=== PATIENT | male | born 1965 | race Hispanic/Latino ===

== ENCOUNTER 2016-04-22 20:40 | Inpatient (IN) | payer BC ==
[2016-04-22] MEDS ORDERED: NACL 0.9% 1000 ML 1,000 ML IV ONE ×2 (20:58→23:35)
[2016-04-22] MEDS ORDERED: SUBLIMAZE IV ONE (20:58)
[2016-04-22] MEDS ORDERED: ARTIFICIAL TEARS OPHTH OINT OU PRN (20:58)
[2016-04-22] MEDS ORDERED: VASELINE LIP THERAPY TP PRN (20:58)
[2016-04-22] MEDS ORDERED: VERSED IV ONE ×2 (20:58→21:30)
[2016-04-22] MEDS ORDERED: NACL 0.9% 500 ML IV SCH (21:00)
[2016-04-22] MEDS ORDERED: fentaNYL DRIP Premix 100 ML IV SCH (21:00)
[2016-04-22] MEDS ORDERED: VERSED ONE (21:00)
[2016-04-22] MEDS ORDERED: VERSED/NS 100MG/100ML 100 ML IV ONE (21:12)
[2016-04-22] MEDS: VERSED/NS 100MG/100ML 100 ML IV SCH (21:15)
[2016-04-22 21:19] LABS: Hematocrit 43.2 % (35.5-45.6); Hemoglobin 13.9 gm/dl (11.8-15.2); Mean Corpuscular HGB Conc 32 % (32-34); Mean Corpuscular Hemoglobin 30 pg (28-32); Mean Corpuscular Volume 92 fl (84-94); Platelet Count 285 K/mm3 (140-440); Red Blood Count 4.68 M/mm3 (3.65-5.03); Red Cell Distribution Width 13.4 % (13.2-15.2); White Blood Count 14.7 K/mm3 (4.5-11.0)
[2016-04-22] MEDS ORDERED: NS IV ONE (21:30)
[2016-04-22 21:33] LABS: INR 1.03 (0.87-1.13)
[2016-04-22 21:34] LABS: Partial Thromboplastin Time 26.4 Sec. (24.2-36.6)
[2016-04-22 21:41] LABS: ISTAT Base Excess -6; ISTAT HCO3 21.9; ISTAT PCO2 52.4 (35-45); ISTAT PH 7.228 (7.35-7.45); ISTAT PO2 148 (80-105); ISTAT SO2 99; ISTAT TCO2 23
[2016-04-22 21:44] LABS: Alanine Aminotransferase 45 units/L (7-56); Albumin 3.8 g/dL (3.9-5); Albumin/Globulin Ratio 1.2 %; Alkaline Phosphatase 94 units/L (35-129); Anion Gap 27 mmol/L; BUN/Creatinine Ratio 11.25; Bilirubin,Total 0.2 mg/dL (0.1-1.2); Blood Urea Nitrogen 18 mg/dL (9-20); Calcium 8.7 mg/dL (8.4-10.2); Carbon Dioxide 18 mmol/L (22-30); Chloride 95.3 mmol/L (98-107); Creatine Kinase 76 units/L (55-170); Glucose 436 mg/dL (75-100); Potassium 5.1 mmol/L (3.6-5.0); Sodium 135 mmol/L (137-145)
--- NOTE | 2016-04-22 21:52 | Emergency Department Report ---
ED General Adult HPI - General Chief complaint: Dyspnea/Respdistress Stated complaint: RESPIRATORY ARREST Time Seen by Provider: 04/22/16 20:58 Source: EMS Mode of arrival: Stretcher Limitations: Physical Limitation - History of Present Illness Initial comments: 51-year-old male presents to the emergency department via EMS in respiratory distress. Per report, the patient was found unresponsive in the bathtub by family. EMS was called and on arrival found the family performing CPR on the patient. Patient was noted to have agonal respirations by EMS, but had strong palpable pulses. Patient was administered 2 mg of Narcan by EMS and was intubated in the field with a 7.0 endotracheal tube. EMS states that the patient began to become more alert just prior to arrival in the emergency department. Further history unable to be obtained from the patient due to his clinical condition. -: Sudden, This evening - Related Data Allergies Allergy/AdvReac Type Severity Reaction Status Date / Time No Known Allergies Allergy Unverified 04/22/16 21:55 ED Review of Systems ROS: Stated complaint: RESPIRATORY ARREST Other details as noted in HPI Comment: Unobtainable due to pts medical conditions ED Past Medical Hx - Past Medical History Additional medical history: Unknown - Surgical History Additional Surgical History: Unknown - Social History Smoking Status: Unknown if ever smoked Substance Use Type: Alcohol ED Physical Exam - General Limitations: Physical Limitation General appearance: alert, in no apparent distress - Head Head exam: Present: atraumatic, normocephalic - Eye Eye exam: Present: normal appearance, PERRL, EOMI - ENT ENT exam: Present: normal exam, normal orophraynx (7.[address] secured at 24 cm at the lip), mucous membranes moist - Neck Neck exam: Present: normal inspection, full ROM. Absent: tenderness - Respiratory Respiratory exam: Present: normal lung sounds bilaterally. Absent: respiratory distress - Cardiovascular Cardiovascular Exam: Present: regular rate, normal rhythm, normal heart sounds - GI/Abdominal GI/Abdominal exam: Present: soft, normal bowel sounds. Absent: distended, tenderness - Extremities Exam Extremities exam: Present: normal inspection, full ROM. Absent: tenderness - Back Exam Back exam: Present: normal inspection, full ROM. Absent: tenderness - Neurological Exam Neurological exam: Present: alert. Absent: motor sensory deficit - Skin Skin exam: Present: warm, dry, intact ED Course Vital Signs 04/22/16 04/22/16 20:50 21:20 Pulse Rate 87 77 Blood Pressure 89/43 104/38 O2 Sat by Pulse 100 100 Oximetry ED Medical Decision Making - Lab Data Result diagrams: 04/22/16 21:00 04/22/16 21:00 - Radiology Data Radiology results: image reviewed interpreted by me: Chest x-ray shows the endotracheal tube in adequate position. No acute cardiopulmonary abnormality is noted. - Medical Decision Making Lab and imaging results reviewed. I spoke with the hospitalist, who will admit. - Differential Diagnosis respiratory arrest, drug overdose, alcohol intoxication Critical care attestation.: If time is entered above; I have spent that time in minutes in the direct care of this critically ill patient, excluding procedure time. ED Disposition Clinical Impression: Acute respiratory failure Qualifiers: Respiratory failure complication: hypercapnia Qualified Code(s): J96.02 - Acute respiratory failure with hypercapnia Disposition: OP ADMITTED IP TO THIS HOSP Is pt being admited?: Yes Condition: Fair Time of Disposition: 22:09
[2016-04-22 23:05] LABS: Basophils % (Manual) 0 % (0.0-1.8); Blastocytes % (Manual) 0 %; Giant Platelets Few; RBC Morphology Normal
[2016-04-22 23:06] LABS: Diff Status Complete
[2016-04-22 23:19] LABS: Urine Drugs of Abuse Note Disclamer
--- NOTE | 2016-04-22 23:22 | Admit Criteria Form ---
Admission Criteria Documentation: RESPIRATORY FAILURE GRG Clinical Indications for Admission to Inpatient Care (Place 'X' for any and all applicable criteria): Hospital admission is needed for appropriate care of the patient because of acute respiratory failure or insufficiency as indicated by ANY ONE of the following(1)(2)(3)(4)(5)(6)(7)(8): [X ]I. Mechanical ventilation needed (acute invasive or noninvasive) [ ]II. Severe ventilation deficit as indicated by ANY ONE of the following (9) [ ]a) Respiratory acidosis (pH less than 7.32 and partial pressure of carbon dioxide greater than 40 mm Hg (5.3 kPa)) [ ]b) Partial pressure of carbon dioxide greater than 44 mm Hg (5.9 kPa ) (new) [ ]c) Airflow measurements less than 25% of predicted (eg, peak expiratory flow rate less than 100 L/minute) [ ]d) Forced vital capacity less than 15 mL/kg of ideal body weight, or 50% decrease in vital capacity from baseline [ ]III. Noncardiac pulmonary edema not resolving with rapid emergency treatment (8) [ ]IV. Severe respiratory distress as indicated by ANY ONE of the following: [ ]a) Severe tachypnea (respiratory rate greater than 30, greater than 45 for 6-month-old, greater than 60 for ) [ ]b) Severe hypoxemia (partial pressure of oxygen less than 50 mm Hg ( 6.7 kPa) on greater than 50% oxygen or partial pressure of oxygen to FIO2 ratio less than 200) [ ]c) Mental status deterioration from respiratory disease [ ]V. Airway obstruction or inadequate protection [A](10)(11) The original [employer] content created by [employer] has been revised. The portions of the content which have been revised are identified through the use of italic text or in bold, and [employer] has neither reviewed nor approved the modified material. All other unmodified content is copyright [employer]. Please see references footnoted in the original [employer] edition 2016 Admission Criteria Met: Yes
[2016-04-22 23:49] LABS: Bilirubin,Urine NEG (Negative); Blood,Urine SM (Negative); Ketones,Urine NEG (Negative); Leukocyte Esterase,Urine NEG (Negative); Mucus,Urine FEW /HPF; Nitrite,Urine NEG (Negative); Sperm,Urine 1+ /HPF (NP); Urobilinogen,Urine < 2.0 mg/dL (<2.0)
[2016-04-23] MEDS ORDERED: ATIVAN IV PRN (01:01)
--- NOTE | 2016-04-23 01:05 | History and Physical Report ---
History of Present Illness Date of examination: 04/22/16 Date of admission: 04/22/16 Chief complaint: Respiratory arrest History of present illness: History is obtained per chart review 51-year-old male presents to the emergency department via EMS in respiratory distress. Per report, the patient was found unresponsive in the bathtub by family. EMS was called and on arrival found the family performing CPR on the patient. Patient was noted to have agonal respirations by EMS, but had strong palpable pulses. Patient was administered 2 mg of Narcan by EMS and was intubated in the field with a 7.0 endotracheal tube. EMS stated that the patient began to become more alert just prior to arrival in the emergency department. Further history unable to be obtained from the patient due to his clinical. Past History Past Medical History: other (couldn't obtained because of altered mental status) Past Surgical History: Other (couldn't obtained because of altered mental status ) Social history: other (couldn't obtained because of altered mental status) Family history: other (couldn't obtained because of altered mental status) Medications and Allergies Allergies Allergy/AdvReac Type Severity Reaction Status Date / Time No Known Allergies Allergy Unverified 04/22/16 21:55 Active Meds: Active Medications Heparin Sodium (Porcine) (Heparin) 5,000 unit SUB-Q Q8HR KATHYA Hydrophilic Ointment (Vaseline Lip Therapy) 1 applic TP Q2HR PRN PRN Reason: Dry Lips Fentanyl Citrate (Fentanyl Drip Premix) 100 mls @ 4.3 mls/hr IV TITR KATHYA; 1 MCG /KG/HR PRN Reason: Protocol Last Admin: 04/22/16 21:15 Dose: 4.3 mls/hr Midazolam HCl (Versed/Ns 100mg/100ml) 100 mls @ 2 mls/hr IV TITR KATHYA; 2 MG/HR PRN Reason: Protocol Last Admin: 04/22/16 21:15 Dose: 2 mls/hr Piperacillin Sod/Tazobactam Sod (Zosyn/Ns 3.375gm/50ml) 50 mls @ 100 mls/hr IV Q6HR KATHYA Lorazepam (Ativan) 2 mg IV Q1HR PRN PRN Reason: SHIELA-Philip 8- Multi-Ingred Cream/Lotion/Oil/Oint (Artificial Tears Ophth Oint) 1 applic OU Q4HR PRN PRN Reason: Dry Eye(s) Sodium Chloride (Nacl 0.9% 500 Ml) 1 ml IV DIRECT KATHYA Review of Systems ROS unobtainable: due to mental status (Patient is sedated, intubated, mechanically ventilated) Exam - Physical Exam Narrative exam: Patient is intubated and mechanically ventilated. Vital signs as documented. Head exam is unremarkable. No scleral icterus . Neck is without jugular venous distension, thyromegaly, or carotid bruits. Lungs are clear to auscultation. Cardiac exam reveals regular rate and Rhythm. First and second heart sounds normal. No murmurs, rubs or gallops. Abdominal exam reveals normal bowel sounds, no masses, no organomegaly and no aortic enlargement. Extremities are nonedematous and both femoral and pedal pulses are normal. ADDICTION TREATMENT COUNSELOR: Sedated. - Constitutional Vitals: Temp Pulse Resp BP Pulse Ox 67 22 95/58 100 04/23/16 00:16 04/23/16 00:00 04/23/16 00:16 04/23/16 00:16 Results - Labs CBC & Chem 7: 04/22/16 21:00 04/22/16 21:00 Labs: Laboratory Last Values WBC 14.7 K/mm3 (4.5-11.0) H 04/22/16 21:00 RBC 4.68 M/mm3 (3.65-5.03) 04/22/16 21:00 Hgb 13.9 gm/dl (11.8-15.2) 04/22/16 21:00 Hct 43.2 % (35.5-45.6) 04/22/16 21:00 MCV 92 fl (84-94) 04/22/16 21:00 MCH 30 pg (28-32) 04/22/16 21:00 MCHC 32 % (32-34) 04/22/16 21:00 RDW 13.4 % (13.2-15.2) 04/22/16 21:00 Plt Count 285 K/mm3 (140-440) 04/22/16 21:00 Lymph # Senior Games Technician 04/22/16 21:00 Add Manual Diff Complete 04/22/16 21:00 Total Counted 100 04/22/16 21:00 Seg Neuts % (Manual) 43.0 % (40.0-70.0) 04/22/16 21:00 Band Neutrophils % 0 % 04/22/16 21:00 Lymphocytes % (Manual) 47.0 % (13.4-35.0) H 04/22/16 21:00 Reactive Lymphs % (Man) 0 % 04/22/16 21:00 Monocytes % (Manual) 6.0 % (0.0-7.3) 04/22/16 21:00 Eosinophils % (Manual) 3.0 % (0.0-4.3) 04/22/16 21:00 Basophils % (Manual) 0 % (0.0-1.8) 04/22/16 21:00 Metamyelocytes % 1.0 % 04/22/16 21:00 Myelocytes % 0 % 04/22/16 21:00 Promyelocytes % 0 % 04/22/16 21:00 Blast Cells % 0 % 04/22/16 21:00 Nucleated RBC % Not Reportable 04/22/16 21:00 Seg Neutrophils # Man 6.3 K/mm3 (1.8-7.7) 04/22/16 21:00 Band Neutrophils # 0.0 K/mm3 04/22/16 21:00 Lymphocytes # (Manual) 6.9 K/mm3 (1.2-5.4) H 04/22/16 21:00 Abs React Lymphs (Man) 0.0 K/mm3 04/22/16 21:00 Monocytes # (Manual) 0.9 K/mm3 (0.0-0.8) H 04/22/16 21:00 Eosinophils # (Manual) 0.4 K/mm3 (0.0-0.4) 04/22/16 21:00 Basophils # (Manual) 0.0 K/mm3 (0.0-0.1) 04/22/16 21:00 Metamyelocytes # 0.1 K/mm3 04/22/16 21:00 Myelocytes # 0.0 K/mm3 04/22/16 21:00 Promyelocytes # 0.0 K/mm3 04/22/16 21:00 Blast Cells # 0.0 K/mm3 04/22/16 21:00 WBC Morphology Not Reportable 04/22/16 21:00 Hypersegmented Neuts Not Reportable 04/22/16 21:00 Hyposegmented Neuts Not Reportable 04/22/16 21:00 Hypogranular Neuts Not Reportable 04/22/16 21:00 Smudge Cells Not Reportable 04/22/16 21:00 Toxic Granulation Not Reportable 04/22/16 21:00 Toxic Vacuolation Not Reportable 04/22/16 21:00 Dohle Bodies Not Reportable 04/22/16 21:00 Pelger-Huet Anomaly Not Reportable 04/22/16 21:00 Dhara Rods Not Reportable 04/22/16 21:00 Platelet Estimate Appears normal 04/22/16 21:00 Clumped Platelets Not Reportable 04/22/16 21:00 Plt Clumps, EDTA Not Reportable 04/22/16 21:00 Large Platelets Not Reportable 04/22/16 21:00 Giant Platelets Few 04/22/16 21:00 Platelet Satelliting Not Reportable 04/22/16 21:00 Plt Morphology Comment Not Reportable 04/22/16 21:00 RBC Morphology Normal 04/22/16 21:00 Dimorphic RBCs Not Reportable 04/22/16 21:00 Polychromasia Not Reportable 04/22/16 21:00 Hypochromasia Not Reportable 04/22/16 21:00 Poikilocytosis Not Reportable 04/22/16 21:00 Anisocytosis Not Reportable 04/22/16 21:00 Microcytosis Not Reportable 04/22/16 21:00 Macrocytosis Not Reportable 04/22/16 21:00 Spherocytes Not Reportable 04/22/16 21:00 Pappenheimer Bodies Not Reportable 04/22/16 21:00 Sickle Cells Not Reportable 04/22/16 21:00 Target Cells Not Reportable 04/22/16 21:00 Tear Drop Cells Not Reportable 04/22/16 21:00 Ovalocytes Not Reportable 04/22/16 21:00 Helmet Cells Not Reportable 04/22/16 21:00 [place] Bodies Not Reportable 04/22/16 21:00 [place] Rings Not Reportable 04/22/16 21:00 Kim Cells Not Reportable 04/22/16 21:00 Bite Cells Not Reportable 04/22/16 21:00 Crenated Cell Not Reportable 04/22/16 21:00 Elliptocytes Not Reportable 04/22/16 21:00 Acanthocytes (Spur) Not Reportable 04/22/16 21:00 Rouleaux Not Reportable 04/22/16 21:00 Hemoglobin C Crystals Not Reportable 04/22/16 21:00 Schistocytes Not Reportable 04/22/16 21:00 Malaria parasites Not Reportable 04/22/16 21:00 Alex Bodies Not Reportable 04/22/16 21:00 Hem Pathologist Commnt No 04/22/16 21:00 PT 13.4 Sec. (12.2-14.9) 04/22/16 21:05 INR 1.03 (0.87-1.13) 04/22/16 21:05 APTT 26.4 Sec. (24.2-36.6) 04/22/16 21:05 POC ABG pH 7.228 (7.35-7.45) L 04/22/16 21:28 POC ABG pCO2 52.4 (35-45) H 04/22/16 21:28 POC ABG pO2 148 (80-105) H 04/22/16 21:28 POC ABG HCO3 21.9 04/22/16 21:28 POC ABG Total CO2 23 04/22/16 21:28 POC ABG O2 Sat 99 04/22/16 21:28 POC ABG Base Excess -6 04/22/16 21:28 FiO2 50 % 04/22/16 21:28 Sodium 135 mmol/L (137-145) L 04/22/16 21:00 Potassium 5.1 mmol/L (3.6-5.0) H 04/22/16 21:00 Chloride 95.3 mmol/L (98-107) L 04/22/16 21:00 Carbon Dioxide 18 mmol/L (22-30) L 04/22/16 21:00 Anion Gap 27 mmol/L 04/22/16 21:00 BUN 18 mg/dL (9-20) 04/22/16 21:00 Creatinine 1.6 mg/dL (0.8-1.5) H 04/22/16 21:00 Estimated GFR 46 ml/min 04/22/16 21:00 BUN/Creatinine Ratio 11.25 % 04/22/16 21:00 Glucose 436 mg/dL (75-100) H 04/22/16 21:00 Lactic Acid 5.8 mmol/L (0.7-2.0) H* 04/22/16 21:00 Calcium 8.7 mg/dL (8.4-10.2) 04/22/16 21:00 Total Bilirubin 0.2 mg/dL (0.1-1.2) 04/22/16 21:00 AST 52 units/L (5-40) H 04/22/16 21:00 ALT 45 units/L (7-56) 04/22/16 21:00 Alkaline Phosphatase 94 units/L (35-129) 04/22/16 21:00 Ammonia 68.0 umol/L (25-60) H 04/22/16 21:00 Total Creatine Kinase 76 units/L (55-170) 04/22/16 21:00 Troponin T < 0.010 ng/mL (0.00-0.029) 04/22/16 21:00 Total Protein 7.0 g/dL (6.3-8.2) 04/22/16 21:00 Albumin 3.8 g/dL (3.9-5) L 04/22/16 21:00 Albumin/Globulin Ratio 1.2 % 04/22/16 21:00 Urine Color Yellow (Yellow) 04/22/16 22:57 Urine Turbidity Clear (Clear) 04/22/16 22:57 Urine pH 5.0 (5.0-7.0) 04/22/16 22:57 Ur Specific [place] 1.015 (1.003-1.030) 04/22/16 22:57 Urine Protein 100 mg/dl mg/dL (Negative) 04/22/16 22:57 Urine Glucose (UA) >=500 mg/dL (Negative) 04/22/16 22:57 Urine Ketones Neg mg/dL (Negative) 04/22/16 22:57 Urine Blood Sm (Negative) 04/22/16 22:57 Urine Nitrite Neg (Negative) 04/22/16 22:57 Urine Bilirubin Neg (Negative) 04/22/16 22:57 Urine Urobilinogen < 2.0 mg/dL (<2.0) 04/22/16 22:57 Ur Leukocyte Esterase Neg (Negative) 04/22/16 22:57 Urine WBC (Auto) 5.0 /HPF (0.0-6.0) 04/22/16 22:57 Urine RBC (Auto) 7.0 /HPF (0.0-6.0) 04/22/16 22:57 U Epithel Cells (Auto) < 1.0 /HPF (0-13.0) 04/22/16 22:57 Hyaline Casts 24 /LPF 04/22/16 22:57 Urine Mucus Few /HPF 04/22/16 22:57 Urine Sperm 1+ /HPF (INVENTORY CONTROL MANAGER) 04/22/16 22:57 Urine Opiates Screen Presumptive negative 04/22/16 22:57 Urine Methadone Screen Presumptive negative 04/22/16 22:57 Ur Barbiturates Screen Presumptive negative 04/22/16 22:57 Ur Phencyclidine Scrn Presumptive negative 04/22/16 22:57 Ur Amphetamines Screen Presumptive negative 04/22/16 22:57 U Benzodiazepines Scrn Presumptive positive 04/22/16 22:57 Urine Cocaine Screen Presumptive positive 04/22/16 22:57 U Marijuana (THC) Screen Presumptive negative 04/22/16 22:57 Drugs of Abuse Note Disclamer 04/22/16 22:57 Plasma/Serum Alcohol < 0.01 gm% (0-0.07) 04/22/16 21:00 cocaine Positive. Lactic acid elevated leukocytosis - Imaging and Cardiology Chest x-ray: image reviewed (ET tube in place, no acute cardiopulmonary abnormalities identified) Assessment and Plan Assessment and plan: Acute hypoxic Respiratory failure Cocaine abuse Alcohol abuse Altered Mental status SIRS Hyperglycemia - Patient is intubated and mechanically ventilated, ABG PH on admission was 7.22 - Patient on CIWA protocol - Patient is started empirically on Zosyn - Frequent neuro check - Sliding scale insulin, follow A1c - Event Marketing Coordinator consulted or ICU admission DVT prophylaxis: Heparin Disposition: Admit to ICU The high probability of a clinically significant, sudden or life threatening deterioration of the [respiratory, ADDICTION TREATMENT COUNSELOR] system(s) required my full and direct attention, intervention and personal management. The aggregate critical care time was [34 minutes] minutes. This time is in addition to time spent performing reported procedures but includes the following: [x] Data Review and interpretation [x] Patient assessment and monitoring of vital signs [x] Documentation [x] Medication orders and management Advance Directives: Yes VTE prophylaxis?: Chemical Plan of care discussed with patient/family: No
[2016-04-23 03:34] LABS: ISTAT Base Excess -4; ISTAT HCO3 20.6; ISTAT PCO2 31.1 (35-45); ISTAT PO2 137 (80-105); ISTAT SO2 99; ISTAT TCO2 22
[2016-04-23] MEDS ORDERED: SUBLIMAZE ONE (03:49)
[2016-04-23] MEDS ORDERED: D50W (25GM) IV PRN (04:00)
[2016-04-23 04:34] LABS: BUN/Creatinine Ratio 18.88; Blood Urea Nitrogen 17 mg/dL (9-20); Calcium 8.1 mg/dL (8.4-10.2); Carbon Dioxide 21 mmol/L (22-30); Chloride 105.9 mmol/L (98-107); Glucose 120 mg/dL (75-100); Potassium 4.6 mmol/L (3.6-5.0); Sodium 138 mmol/L (137-145)
[2016-04-23 04:37] LABS: Anion Gap 16 mmol/L
[2016-04-23 04:43] LABS: Basophils % (Auto) 0.1 % (0.0-1.8); Eosinophils % (Auto) 0.1 % (0.0-4.3); Hematocrit 38.2 % (35.5-45.6); Hemoglobin 12.6 gm/dl (11.8-15.2); Mean Corpuscular HGB Conc 33 % (32-34); Mean Corpuscular Hemoglobin 30 pg (28-32); Mean Corpuscular Volume 90 fl (84-94); Platelet Count 198 K/mm3 (140-440); Red Blood Count 4.27 M/mm3 (3.65-5.03); Red Cell Distribution Width 13.3 % (13.2-15.2); White Blood Count 13.3 K/mm3 (4.5-11.0)
[2016-04-23] MEDS: VERSED/NS 100MG/100ML 100 ML IV SCH (05:28)
[2016-04-23] MEDS: HEPARIN SUB-Q SCH ×3 (06:15→22:37)
[2016-04-23] MEDS: ZOSYN/NS 3.375GM/50ML 50 ML IV SCH ×4 (06:15→23:28)
--- NOTE | 2016-04-23 09:11 | Progress Note ---
Assessment and Plan Assessment and plan: --Acute hypoxic respiratory failure requiring intubation and mechanical ventilation Patient is alert and awake feeling much better Continue nebulizers, ventilatory support, wean as tolerated, and extubate Pulmonary evaluation --Acute pulmonary edema We will add Lasix closely monitored input-output, echocardiogram for left ventricular function ejection fraction Consider cardiology evaluation if needed --Leukocytosis ; Probably stress induced, rule out sepsis Cultures and empiric antibiotics --Lactic acidosis ; Rule out sepsis, trending down, empiric antibiotics Follow cultures -- mild hyponatremia replacement therapy An monitor electrolytes --Acute renal failure probably vasogenic nephropathy Gentle hydration closely monitor renal function avoid nephrotoxic medications Gradually improving --DVT prophylaxis with heparin Will extubate the patient , place on oxygen titrated to O2 sats more than 90% BiPAP as needed Plan of care discussed with the patient his nurse Closely monitor the patient possible, patient will be admitted to telemetry/ MedSurg Possible discharge in 1-2 days if stable Critical care time 31 minutes The high probability of a clinically significant, sudden or life threatening deterioration of the [respiratory, [employer], renal] system(s) required my full and direct attention, intervention and personal management. The aggregate critical care time was [31 minutes] minutes. This time is in addition to time spent performing reported procedures but includes the following: [x] Data Review and interpretation [x] Patient assessment and monitoring of vital signs [x] Documentation [x] Medication orders and management History Interval history: Patient seen and evaluated in the ER awaiting bed assignment Patient was in acute respiratory failure requiring intubation on ventilatory support Patient is a alert and awake responding appropriately No acute distress Vital signs reviewed Hospitalist Physical - Constitutional Vitals: Temp Pulse Resp BP Pulse Ox 97.8 F 63 22 102/63 99 04/23/16 08:25 04/23/16 08:25 04/23/16 08:25 04/23/16 08:25 04/23/16 08:25 General appearance: Present: no acute distress, well-nourished, other ( intubated on ventilatory support) - EENT Eyes: Present: PERRL, EOM intact - Neck Neck: Present: supple, normal ROM - Respiratory Respiratory effort: normal Respiratory: bilateral: diminished, rales, negative: rhonchi, wheezing - Cardiovascular Rhythm: regular Heart Sounds: Present: S1 & S2 - Extremities Extremities: no ischemia, pulses intact, pulses symmetrical Peripheral Pulses: within normal limits - Abdominal General gastrointestinal: soft, non-tender, non-distended, normal bowel sounds - Integumentary Integumentary: Present: clear, warm - Psychiatric Psychiatric: appropriate mood/affect, cooperative, other (intubated on vent) - Neurologic Neurologic: CNII-XII intact, moves all extremities, other (intubated on ventilator support) Results - Labs CBC & Chem 7: 04/23/16 04:02 04/23/16 09:54 Labs: Laboratory Last Values WBC 13.3 K/mm3 (4.5-11.0) H 04/23/16 04:02 RBC 4.27 M/mm3 (3.65-5.03) 04/23/16 04:02 Hgb 12.6 gm/dl (11.8-15.2) 04/23/16 04:02 Hct 38.2 % (35.5-45.6) 04/23/16 04:02 MCV 90 fl (84-94) 04/23/16 04:02 MCH 30 pg (28-32) 04/23/16 04:02 MCHC 33 % (32-34) 04/23/16 04:02 RDW 13.3 % (13.2-15.2) 04/23/16 04:02 Plt Count 198 K/mm3 (140-440) 04/23/16 04:02 Lymph % (Auto) 12.3 % (13.4-35.0) L 04/23/16 04:02 [place] % (Auto) 8.6 % (0.0-7.3) H 04/23/16 04:02 Eos % (Auto) 0.1 % (0.0-4.3) 04/23/16 04:02 Baso % (Auto) 0.1 % (0.0-1.8) 04/23/16 04:02 Lymph # 1.6 K/mm3 (1.2-5.4) 04/23/16 04:02 [place] # 1.2 K/mm3 (0.0-0.8) H 04/23/16 04:02 Eos # 0.0 K/mm3 (0.0-0.4) 04/23/16 04:02 Baso # 0.0 K/mm3 (0.0-0.1) 04/23/16 04:02 Add Manual Diff Complete 04/22/16 21:00 Total Counted 100 04/22/16 21:00 Seg Neutrophils % 78.9 % (40.0-70.0) H 04/23/16 04:02 Seg Neuts % (Manual) 43.0 % (40.0-70.0) 04/22/16 21:00 Band Neutrophils % 0 % 04/22/16 21:00 Lymphocytes % (Manual) 47.0 % (13.4-35.0) H 04/22/16 21:00 Reactive Lymphs % (Man) 0 % 04/22/16 21:00 Monocytes % (Manual) 6.0 % (0.0-7.3) 04/22/16 21:00 Eosinophils % (Manual) 3.0 % (0.0-4.3) 04/22/16 21:00 Basophils % (Manual) 0 % (0.0-1.8) 04/22/16 21:00 Metamyelocytes % 1.0 % 04/22/16 21:00 Myelocytes % 0 % 04/22/16 21:00 Promyelocytes % 0 % 04/22/16 21:00 Blast Cells % 0 % 04/22/16 21:00 Nucleated RBC % Not Reportable 04/22/16 21:00 Seg Neutrophils # 10.5 K/mm3 (1.8-7.7) H 04/23/16 04:02 Seg Neutrophils # Man 6.3 K/mm3 (1.8-7.7) 04/22/16 21:00 Band Neutrophils # 0.0 K/mm3 04/22/16 21:00 Lymphocytes # (Manual) 6.9 K/mm3 (1.2-5.4) H 04/22/16 21:00 Abs React Lymphs (Man) 0.0 K/mm3 04/22/16 21:00 Monocytes # (Manual) 0.9 K/mm3 (0.0-0.8) H 04/22/16 21:00 Eosinophils # (Manual) 0.4 K/mm3 (0.0-0.4) 04/22/16 21:00 Basophils # (Manual) 0.0 K/mm3 (0.0-0.1) 04/22/16 21:00 Metamyelocytes # 0.1 K/mm3 04/22/16 21:00 Myelocytes # 0.0 K/mm3 04/22/16 21:00 Promyelocytes # 0.0 K/mm3 04/22/16 21:00 Blast Cells # 0.0 K/mm3 04/22/16 21:00 WBC Morphology Not Reportable 04/22/16 21:00 Hypersegmented Neuts Not Reportable 04/22/16 21:00 Hyposegmented Neuts Not Reportable 04/22/16 21:00 Hypogranular Neuts Not Reportable 04/22/16 21:00 Smudge Cells Not Reportable 04/22/16 21:00 Toxic Granulation Not Reportable 04/22/16 21:00 Toxic Vacuolation Not Reportable 04/22/16 21:00 Dohle Bodies Not Reportable 04/22/16 21:00 Pelger-Huet Anomaly Not Reportable 04/22/16 21:00 Dhara Rods Not Reportable 04/22/16 21:00 Platelet Estimate Appears normal 04/22/16 21:00 Clumped Platelets Not Reportable 04/22/16 21:00 Plt Clumps, EDTA Not Reportable 04/22/16 21:00 Large Platelets Not Reportable 04/22/16 21:00 Giant Platelets Few 04/22/16 21:00 Platelet Satelliting Not Reportable 04/22/16 21:00 Plt Morphology Comment Not Reportable 04/22/16 21:00 RBC Morphology Normal 04/22/16 21:00 Dimorphic RBCs Not Reportable 04/22/16 21:00 Polychromasia Not Reportable 04/22/16 21:00 Hypochromasia Not Reportable 04/22/16 21:00 Poikilocytosis Not Reportable 04/22/16 21:00 Anisocytosis Not Reportable 04/22/16 21:00 Microcytosis Not Reportable 04/22/16 21:00 Macrocytosis Not Reportable 04/22/16 21:00 Spherocytes Not Reportable 04/22/16 21:00 Pappenheimer Bodies Not Reportable 04/22/16 21:00 Sickle Cells Not Reportable 04/22/16 21:00 Target Cells Not Reportable 04/22/16 21:00 Tear Drop Cells Not Reportable 04/22/16 21:00 Ovalocytes Not Reportable 04/22/16 21:00 Helmet Cells Not Reportable 04/22/16 21:00 [place] Bodies Not Reportable 04/22/16 21:00 Ernul Rings Not Reportable 04/22/16 21:00 Kim Cells Not Reportable 04/22/16 21:00 Bite Cells Not Reportable 04/22/16 21:00 Crenated Cell Not Reportable 04/22/16 21:00 Elliptocytes Not Reportable 04/22/16 21:00 Acanthocytes (Spur) Not Reportable 04/22/16 21:00 Rouleaux Not Reportable 04/22/16 21:00 Hemoglobin C Crystals Not Reportable 04/22/16 21:00 Schistocytes Not Reportable 04/22/16 21:00 Malaria parasites Not Reportable 04/22/16 21:00 Alex Bodies Not Reportable 04/22/16 21:00 Hem Pathologist Commnt No 04/22/16 21:00 PT 13.4 Sec. (12.2-14.9) 04/22/16 21:05 INR 1.03 (0.87-1.13) 04/22/16 21:05 APTT 26.4 Sec. (24.2-36.6) 04/22/16 21:05 POC ABG pH 7.430 (7.35-7.45) 04/23/16 03:27 POC ABG pCO2 31.1 (35-45) L 04/23/16 03:27 POC ABG pO2 137 (80-105) H 04/23/16 03:27 POC ABG HCO3 20.6 04/23/16 03:27 POC ABG Total CO2 22 04/23/16 03:27 POC ABG O2 Sat 99 04/23/16 03:27 POC ABG Base Excess -4 04/23/16 03:27 FiO2 40 % 04/23/16 03:27 Sodium 138 mmol/L (137-145) 04/23/16 04:02 Potassium 4.6 mmol/L (3.6-5.0) 04/23/16 04:02 Chloride 105.9 mmol/L (98-107) 04/23/16 04:02 Carbon Dioxide 21 mmol/L (22-30) L 04/23/16 04:02 Anion Gap 16 mmol/L 04/23/16 04:02 BUN 17 mg/dL (9-20) 04/23/16 04:02 Creatinine 0.9 mg/dL (0.8-1.5) 04/23/16 04:02 Estimated GFR > 60 ml/min 04/23/16 04:02 BUN/Creatinine Ratio 18.88 % 04/23/16 04:02 Glucose 120 mg/dL (75-100) H 04/23/16 04:02 Hemoglobin A1c 5.8 % (4-6) 04/23/16 07:31 Lactic Acid 1.2 mmol/L (0.7-2.0) 04/23/16 04:02 Calcium 8.1 mg/dL (8.4-10.2) L 04/23/16 04:02 Total Bilirubin 0.2 mg/dL (0.1-1.2) 04/22/16 21:00 AST 52 units/L (5-40) H 04/22/16 21:00 ALT 45 units/L (7-56) 04/22/16 21:00 Alkaline Phosphatase 94 units/L (35-129) 04/22/16 21:00 Ammonia 68.0 umol/L (25-60) H 04/22/16 21:00 Total Creatine Kinase 76 units/L (55-170) 04/22/16 21:00 Troponin T < 0.010 ng/mL (0.00-0.029) 04/22/16 21:00 Total Protein 7.0 g/dL (6.3-8.2) 04/22/16 21:00 Albumin 3.8 g/dL (3.9-5) L 04/22/16 21:00 Albumin/Globulin Ratio 1.2 % 04/22/16 21:00 Urine Color Yellow (Yellow) 04/22/16 22:57 Urine Turbidity Clear (Clear) 04/22/16 22:57 Urine pH 5.0 (5.0-7.0) 04/22/16 22:57 Ur Specific [place] 1.015 (1.003-1.030) 04/22/16 22:57 Urine Protein 100 mg/dl mg/dL (Negative) 04/22/16 22:57 Urine Glucose (UA) >=500 mg/dL (Negative) 04/22/16 22:57 Urine Ketones Neg mg/dL (Negative) 04/22/16 22:57 Urine Blood Sm (Negative) 04/22/16 22:57 Urine Nitrite Neg (Negative) 04/22/16 22:57 Urine Bilirubin Neg (Negative) 04/22/16 22:57 Urine Urobilinogen < 2.0 mg/dL (<2.0) 04/22/16 22:57 Ur Leukocyte Esterase Neg (Negative) 04/22/16 22:57 Urine WBC (Auto) 5.0 /HPF (0.0-6.0) 04/22/16 22:57 Urine RBC (Auto) 7.0 /HPF (0.0-6.0) 04/22/16 22:57 U Epithel Cells (Auto) < 1.0 /HPF (0-13.0) 04/22/16 22:57 Hyaline Casts 24 /LPF 04/22/16 22:57 Urine Mucus Few /HPF 04/22/16 22:57 Urine Sperm 1+ /HPF (PUSHCART PEDDLER) 04/22/16 22:57 Urine Opiates Screen Presumptive negative 04/22/16 22:57 Urine Methadone Screen Presumptive negative 04/22/16 22:57 Ur Barbiturates Screen Presumptive negative 04/22/16 22:57 Ur Phencyclidine Scrn Presumptive negative 04/22/16 22:57 Ur Amphetamines Screen Presumptive negative 04/22/16 22:57 U Benzodiazepines Scrn Presumptive positive 04/22/16 22:57 Urine Cocaine Screen Presumptive positive 04/22/16 22:57 U Marijuana (THC) Screen Presumptive negative 04/22/16 22:57 Drugs of Abuse Note Disclamer 04/22/16 22:57 Plasma/Serum Alcohol < 0.01 gm% (0-0.07) 04/22/16 21:00
--- NOTE | 2016-04-23 09:18 | XRay Report ---
AP CHEST :04/23/16 07:27 CLINICAL: Intubated.Follow up respiratory failure. COMPARISON:04/22/16 FINDINGS: The endotracheal tube is in satisfactory position. The feeding tube is satisfactory. Cardia megaly and central vascular congestion. The pulmonary vessels are slightly more distinct than on the prior exam. No pulmonary consolidation. No pneumothorax. IMPRESSION: CHF with interstitial pulmonary edema and little change.
--- NOTE | 2016-04-23 09:19 | XRay Report ---
AP CHEST :04/22/16 21:08 CLINICAL: Post intubation. COMPARISON:None. FINDINGS: An endotracheal tube is in satisfactory position. Cardia megaly and central vascular chest. Bilateral diffuse reticular interstitial opacities. No pneumothorax. IMPRESSION: Satisfactory position of the endotracheal tube.CHF with mild interstitial pulmonary edema.
[2016-04-23] MEDS: PEPCID PO SCH ×2 (10:17→22:38)
[2016-04-23 10:32] LABS: Alanine Aminotransferase 42 units/L (7-56); Albumin 3.4 g/dL (3.9-5); Albumin/Globulin Ratio 1.1 %; Alkaline Phosphatase 73 units/L (35-129); Anion Gap 16 mmol/L; Bilirubin,Total 0.7 mg/dL (0.1-1.2); Blood Urea Nitrogen 18 mg/dL (9-20); Calcium 8.3 mg/dL (8.4-10.2); Carbon Dioxide 23 mmol/L (22-30); Chloride 105.5 mmol/L (98-107); Glucose 83 mg/dL (75-100); Potassium 4.2 mmol/L (3.6-5.0); Sodium 140 mmol/L (137-145); Total Protein 6.5 g/dL (6.3-8.2)
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
[2016-04-23] MEDS ORDERED: LASIX IV ONE (16:09)
[2016-04-23] MEDS: PROVENTIL IH SCH (19:41)
[2016-04-23] MEDS: ATROVENT IH SCH (19:41)
[2016-04-23] MEDS ORDERED: NOVOLOG SUB-Q SCH (22:00)
[2016-04-23] MEDS: HABITROL TD SCH (22:36)
[2016-04-24] MEDS: PROVENTIL IH SCH ×2 (03:20→08:16)
[2016-04-24] MEDS: ATROVENT IH SCH ×2 (03:20→08:16)
[2016-04-24] MEDS: ZOSYN/NS 3.375GM/50ML 50 ML IV SCH (05:12)
[2016-04-24] MEDS: HEPARIN SUB-Q SCH (05:13)
[2016-04-24 08:04] VITALS: BP 151/78
[2016-04-24] MEDS ORDERED: PROVENTIL IH PRN (09:00)
--- NOTE | 2016-04-24 09:42 | Discharge Summary ---
Providers - Providers Date of Admission: 04/23/16 00:57 Date of discharge: 04/24/16 Attending physician: ABISAI STALLINGS MD Primary care physician: TRANSPORTER DRIVER Hospitalization Condition: Fair Exam - Constitutional Vitals: Temp Pulse Resp BP Pulse Ox 97.2 F L 74 20 151/78 97 04/24/16 08:00 04/24/16 08:00 04/24/16 08:00 04/24/16 08:00 04/24/16 08:00 Plan Special Instructions: smoking cessation, other (adv to quit coccain) Follow up with: PRIMARY CAREMD [Primary Care Provider] - 3-5 Days BESS CORDERO MD [Staff Physician] - 7 Days Prescriptions: Azithromycin [Zithromax Z-DIONNE] 0 mg PO DAILY #1 tab Famotidine [Pepcid] 20 mg PO BID #14 tablet Furosemide [Lasix] 20 mg PO QDAY #10 tablet Nicotine [Habitrol] 21 mg TD QDAY #30 patch
[2016-04-24] MEDS: HABITROL TD SCH (09:59)
[2016-04-24] MEDS: PEPCID PO SCH (09:59)
[2016-04-24] MEDS ORDERED: LASIX IV SCH (10:00)
[2016-04-24] MEDS ORDERED: DUONEB 0.5 MG-3 MG/3 ML SOLN IH SCH (14:00)
--- NOTE | 2016-04-24 23:36 | XRay Report ---
FINAL REPORT PROCEDURE: Chest. TECHNIQUE: Chest radiograph anteroposterior view. CPT 74900 HISTORY: Followup respiratory failure. COMPARISON: No prior studies are available for comparison. FINDINGS: The heart and mediastinum appear normal. The lungs are clear and well expanded. There are no pleural effusions. The soft tissues and regional skeleton are unremarkable. IMPRESSION: No evidence of acute disease.
== END 2016-04-24 11:17 | disposition home or self-care (01) | DRG 208 ==
LOC: ED 20:40 → CC1 04-23 00:57 → 4A 04-23 11:16
PROVIDERS: ADMIT Internal Medicine; ATTEND Internal Medicine
PROC: 0BH17EZ Insertion of Endotracheal Airway into Trachea, Via Natural or Artificial Opening (ICD-10-PCS; principal; 2016-04-23)
PROC: 5A1935Z Respiratory Ventilation, Less than 24 Consecutive Hours (ICD-10-PCS; 2016-04-23)
DX: J96.01 Acute respiratory failure with hypoxia (principal); R65.10 Systemic inflammatory response syndrome (SIRS) of non-infectious origin without acute organ dysfunction; E87.2 Acidosis; E87.1 Hypo-osmolality and hyponatremia; N17.9 Acute kidney failure, unspecified; F14.10 Cocaine abuse, uncomplicated; F10.10 Alcohol abuse, uncomplicated; Y90.9 Presence of alcohol in blood, level not specified; R73.9 Hyperglycemia, unspecified; D72.829 Elevated white blood cell count, unspecified; J96.02 Acute respiratory failure with hypercapnia; I50.9 Heart failure, unspecified
CPT/HCPCS: 36415; 36600; 71010; 80048; 80053; 80307; 80320; 81001; 82140; 82550; 82803; 82962; 83036; 84484; 85007; 85025; 85610; 85730; 87205; 93005; 93010; 94002; 94640; 96361; 96374; 96375; 96376; 99406; G0480; J1644; J1940; J2250; J2543; J3010; J7030

== ENCOUNTER 2016-09-27 15:28 | Emergency (ER) | payer SELFPAY ==
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
--- NOTE | 2016-09-27 17:12 | Cat Scan Report ---
FINAL REPORT EXAM: CT HEAD/BRAIN WO CON HISTORY: chi change TECHNIQUE: Noncontrast CT axial images of the brain. PRIORS: None. FINDINGS: No parenchymal mass, mass effect, hemorrhage, midline shift or hydrocephalus. No evidence of acute cortical infarct. No abnormal, extra-axial fluid or air collection. Tentorium cerebelli mildly hyperdense, but symmetric. Osseous calvarium grossly intact. Mild medial convexity of left orbit medial wall or lamina papyracea may represent chronic posttraumatic change or developmental variant. Partial opacification of left mastoid air complex. IMPRESSION: 1. No acute intracranial findings.
[2016-09-27] MEDS ORDERED: TYLENOL #3 PO ONE (18:28)
[2016-09-27] MEDS ORDERED: FLEXERIL PO ONE (18:28)
[2016-09-27] MEDS ORDERED: CATAPRES ONE (19:20)
[2016-09-27] MEDS ORDERED: CATAPRES PO ONE (19:26)
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
[2016-09-27] MEDS ORDERED: BOOSTRIX IM ONE (20:17)
[2016-09-27 21:19] VITALS: BP 134/79
== END 2016-09-27 21:18 | disposition home or self-care (01) ==
LOC: ED 15:28
DX: R68.84 Jaw pain (principal); R51 Headache; F17.200 Nicotine dependence, unspecified, uncomplicated; Y00.XXXA Assault by blunt object, initial encounter; Y93.89 Activity, other specified; Y99.8 Other external cause status; Y92.89 Other specified places as the place of occurrence of the external cause
CPT/HCPCS: 70355; 70450; 90471; 90715